=== PATIENT | male | born 1940 | race Caucasian/White ===

== ENCOUNTER 2019-12-20 | Outpatient (REF) | payer MEDICARE, OTHER, SELFPAY | END 2019-12-21 15:35 | disposition home or self-care (01) | LOC: HO.LNP | PROVIDERS: Visit Provider Urology | DX: C67.9 Malignant neoplasm of bladder, unspecified (principal) | CPT/HCPCS: 88112 ==

== ENCOUNTER → 2019-12-20 14:44 | Outpatient (BNVA) | payer MEDICARE, OTHER, SELFPAY | PROVIDERS: PCP Internal Medicine; Visit Provider Urology | DX: C67.9 Malignant neoplasm of bladder, unspecified (principal) | CPT/HCPCS: 52000; 99212 ==

== ENCOUNTER 2020-04-21 16:04 | Emergency (ER) | payer OTHER, MEDICARE, SELFPAY ==
--- NOTE | ~2020-04-21 | XR_ITS ---
EXAMINATION: XR FOOT, LEFT CLINICAL INFORMATION: Concern for osteomyelitis. COMPARISON: No priors. TECHNIQUE: AP, lateral, and oblique views of the left foot. FINDINGS: No fracture. Joints are approximated with preserved alignment. No erosions, reactive sclerosis, or periosteal reaction to suggest acute osteomyelitis. Vascular calcifications. No soft tissue gas. No radiopaque foreign body. Pes planus. XR/XR foot LT min 3V IMPRESSION: Left foot: No acute fracture or malalignment. No radiographic evidence of acute osteomyelitis.
--- NOTE | ~2020-04-21 | XR_ITS ---
EXAMINATION: XR FOOT, RIGHT CLINICAL INFORMATION: Concern for osteomyelitis. COMPARISON: No priors. TECHNIQUE: AP, lateral, and oblique views of the right foot. FINDINGS: No fracture. Bone density is preserved. No erosions, reactive sclerosis, or periosteal reaction to suggest acute osteomyelitis. No soft tissue gas. No radiopaque foreign body. Vascular calcifications. XR/XR foot RT min 3V IMPRESSION: Right foot: No acute fracture or malalignment. No radiographic features of acute osteomyelitis.
[2020-04-21 16:24] VITALS: BP 118/57; PULSE 69; RESP 16; TEMP 36.2; O2SAT 98; BMI 30.9
[2020-04-21 20:29] LABS: Glucose, Whole Blood 110 mg/dL (60-115)
--- NOTE | 2020-04-21 20:30 | PC.NURSE ---
PATIENT'S POC GLUCOSE 110. [facility] ([facility]) NOTIFIED THIS RN. PT RESTING IN BED 19H AT THIS TIME. AWAITING PRIMARY ED EVALUATION.
--- NOTE | 2020-04-21 21:07 | ED_ITS ---
HPI - Extremity Problem General Chief complaint: Extremity Problem Stated complaint: toe purple, back ulcer Time Seen by Provider: 04/21/20 20:54 Source: patient Mode of arrival: ambulatory Limitations: no limitations History of Present Illness HPI Narrative: Patient comes to emergency room complaining of bilateral leg swelling. Patient states he is being seen by his primary care physician and yeast tender. Patient states that his legs have been swollen for 2-3 months, he has several lesions in his toes in the dorsal aspect, has been seen by Dermatology for this. Patient states that he is taking 60 mg of torsemide every day, is complaint with his medications. Patient came to the emergency room because his family insisted that he needed to be checked out. Patient states he recently finished a course of antibiotics, does not remember the name. Patient denies fever or chills, no pain in his toes, his diabetic and has neuropathy MD Complaint: extremity swelling Related Data Previous Rx's Medication Instructions Recorded cephalexin [Keflex] 750 mg PO BID #14 cap 04/21/20 doxycycline hyclate 100 mg PO BID #14 tab 04/21/20 loperamide 2 mg PO Q6H PRN #10 cap 04/21/20 Allergies Allergy/AdvReac Type Severity Reaction Status Date / Time No Known Allergies Allergy Unverified 11/16/19 19:23 [No Known Allergies*] Review of Systems Review of Systems: Constitutional : Reports recent weight loss due to increased diuresis, No Fever, No Chills, No Night Sweats, No Fatigue, No Malaise ENT/Mouth : No Hearing loss, No Ear Pain, No Nasal Congestion, No Sinus Pain, No Hoarseness, No sore throat, No Rhinorrhea, No Swallowing Difficulty Eyes: No Eye Pain, No Swelling, No Redness, No Foreign Body, No Discharge, No Vision Changes Cardiovascular : No Chest Pain, No SOB, No Dyspnea on Exertion, No Orthopnea, No Palpitations Respiratory : No Cough, No Sputum, No Wheezing, No Smoke Exposure, No Dyspnea Gastrointestinal : No Nausea, No Vomiting, No Diarrhea, No Constipation, No abdominal Pain, No Hematochezia, No Melena Genitourinary : no irregular bleeding, No Dysuria, No Urinary Frequency, No Hematuria, No Urinary Incontinence, No Urgency, No Flank Pain, No Urinary Flow Changes, No Hesitancy Musculoskeletal : No joint pain, No Myalgias, No Joint Swelling Skin : Lower extremity swelling, blisters losing clear fluid bilaterally, scabs over toes Neuro : No Weakness, No Numbness, No Paresthesias, No Loss of Consciousness, No Dizziness, No Headache Psych : No Anxiety/Panic, No Depression, No SI/HI/AH/VH, No Social Issues, Heme/Lymph: No Bruising, No Bleeding Endocrine : No Polyuria, No Polydipsia, No Temperature Intolerance [facility] Past Medical History Medical History (Updated 04/21/20 @ 23:25 by Kary Barnes MD) Diabetes mellitus Social History Social History Advance Directives: No Physical Exam Vital Signs: Vital Signs: Last Vital Signs Temp 97.2 F 04/21/20 16:24 Pulse 69 04/21/20 16:24 Resp 16 04/21/20 16:24 BP 118/57 L 04/21/20 16:24 Pulse Ox 98 04/21/20 16:24 Body Mass Index 30.9 Appearance: Alert. Oriented X3. No acute distress. Eyes: Pupils equal, round and reactive to light. ENT: Pharynx normal. Neck: Normal inspection. Neck supple. No lymph nodes noted. No crepitus CVS: Normal heart rate and rhythm. Pulses normal. Normal S1 and S2 Respiratory: No respiratory distress. Breath sounds normal. No Wheezing. No rales Abdomen: Soft and nontender. No rigidity. No distention. good BS x4 Skin: Skin warm , lower extremities are oozing clear fluid, are several eschars in the dorsum of several toes, not painful to touch Extremities: +3 pitting edema bilaterally Neuro: Oriented X 3. No motor deficit. No sensory deficit. Moving all extermities. No slurred speech. Course Course Course Narrative: I discussed with the patient that he would benefit from a 2nd round of antibiotic treatment. However, the main course of treatment for the patient will be debridement. Patient will be referred to the wound clinic. Also, patient states that earlier today he had 1 episode of diarrhea, no v omiting, no abdominal pain. At this time, patient's white blood cell count is within normal limits, no fever, sepsis not suspected Patient's blood pressure is stable, I discussed with the patient to increase his torsemide to 80 mg, currently taking 60. MDM - Extremity (Nontraumatic) Lab Data Result diagrams: 04/21/20 21:34 04/21/20 22:12 Labs: Lab Results 04/21/20 04/21/20 04/21/20 Range/Units 20:26 21:34 21:34 WBC 7.0 (4.8-10.8) X10*3/uL RBC 3.99 L (4.60-5.80) X10*6/uL Hgb 10.7 L (14.0-18.0) g/dl Hct 34.4 L (42-52) % MCV 86.2 (80-98) fL MCH 26.8 L (27.0-33.0) pg MCHC 31.1 (31.0-36.0) g/dl RDW 19.1 H (11.0-16.0) % Plt Count 215 (160-400) X10*3/uL MPV 9.1 L (9.4-12.4) fL Immature Gran % (Auto) 0.3 (0.0-0.4) % Neut % (Auto) 74.8 H (45-73) % Lymph % (Auto) 8.8 L (20-40) % Mccreary % (Auto) 12.8 H (2-11) % Eos % (Auto) 2.6 (0-4) % Baso % (Auto) 0.7 (0-2) % Lymph # (Auto) 0.6 L (1.2-4.9) X10*3/uL Mccreary # (Auto) 0.9 (0.1-1.2) X10*3/uL Eos # (Auto) 0.2 (0.0-0.4) X10*3/uL Baso # (Auto) 0.1 (0.0-0.2) X10*3/uL Abs Immat Gran (auto) 0.02 (0.00-0.03) X10*3/uL Absolute Neuts (auto) 5.2 (2.0-8.3) X10*3/uL Absolute Nucleated RBC 0.000 (0.0-0.012) X10*3/uL Nucleated RBC % (auto) 0.0 (0.0-0.2) /100WBC Smear Tech's Comments VERIFIED Sodium (135-145) mmol/L Potassium (3.3-5.1) mmol/L Chloride (96-108) mmol/L Carbon Dioxide (22-29) mmol/L Anion Gap (12-20) BUN (9-16) mg/dL Creatinine (0.5-1.4) mg/dL Estim Creat Clear Calc Estimated GFR POC Glucose 110 (60-115) mg/dL Random Glucose (60-115) mg/dL Calcium (8.4-10.2) mg/dL B-Natriuretic Peptide 338 H (<100) pg/mL 04/21/20 Range/Units 22:12 WBC (4.8-10.8) X10*3/uL RBC (4.60-5.80) X10*6/uL Hgb (14.0-18.0) g/dl Hct (42-52) % MCV (80-98) fL MCH (27.0-33.0) pg MCHC (31.0-36.0) g/dl RDW (11.0-16.0) % Plt Count (160-400) X10*3/uL MPV (9.4-12.4) fL Immature Gran % (Auto) (0.0-0.4) % Neut % (Auto) (45-73) % Lymph % (Auto) (20-40) % Mccreary % (Auto) (2-11) % Eos % (Auto) (0-4) % Baso % (Auto) (0-2) % Lymph # (Auto) (1.2-4.9) X10*3/uL Mccreary # (Auto) (0.1-1.2) X10*3/uL Eos # (Auto) (0.0-0.4) X10*3/uL Baso # (Auto) (0.0-0.2) X10*3/uL Abs Immat Gran (auto) (0.00-0.03) X10*3/uL Absolute Neuts (auto) (2.0-8.3) X10*3/uL Absolute Nucleated RBC (0.0-0.012) X10*3/uL Nucleated RBC % (auto) (0.0-0.2) /100WBC Smear Tech's Comments Sodium 132 L (135-145) mmol/L Potassium 5.2 H (3.3-5.1) mmol/L Chloride 94 L (96-108) mmol/L Carbon Dioxide 27 (22-29) mmol/L Anion Gap 16 (12-20) BUN 41 H (9-16) mg/dL Creatinine 1.76 H (0.5-1.4) mg/dL Estim Creat Clear Calc 45.2 Estimated GFR 37 POC Glucose (60-115) mg/dL Random Glucose 94 (60-115) mg/dL Calcium 9.0 (8.4-10.2) mg/dL B-Natriuretic Peptide (<100) pg/mL Imaging Data Right foot x-ray: Radiologist's impression: FINDINGS: No fracture. Bone density is preserved. No erosions, reactive sclerosis, or periosteal reaction to suggest acute osteomyelitis. No soft tissue gas. No radiopaque foreign body. Vascular calcifications. XR/XR foot RT min 3V IMPRESSION: Right foot: No acute fracture or malalignment. No radiographic features of acute osteomyelitis. Left foot x-ray: Radiologist's impression: FINDINGS: No fracture. Joints are approximated with preserved alignment. No erosions, reactive sclerosis, or periosteal reaction to suggest acute osteomyelitis. Vascular calcifications. No soft tissue gas. No radiopaque foreign body. Pes planus. XR/XR foot LT min 3V IMPRESSION: Left foot: No acute fracture or malalignment. No radiographic evidence of acute osteomyelitis. Discharge Plan Discharge Clinical Impression: Lower extremity edema, Diabetic foot ulcer associated with type 2 diabetes mellitus, Diarrhea Patient Disposition: Home, Self-Care Instructions: Leg Edema (ED) Additional Instructions: Please increase your torsemide dose to 80 mg. Please make sure to call the wound clinic to schedule an appointment. If anything changes in your toes, any new changes, please return to the emergency room. Please use compression stockings as long as you can tolerated it. Please call the wound care center to schedule an appointment , [address] [place] [address] Please follow-up with your primary care physician tomorrow. If you have any worsening or new symptoms, please return to the emergency room or call [phone] Prescriptions: New loperamide 2 mg capsule 2 mg PO Q6H PRN (Reason: loose stool) Qty: 10 RF: 0 doxycycline hyclate 100 mg tablet 100 mg PO BID Qty: 14 RF: 0 cephalexin [Keflex] 750 mg capsule 750 mg PO BID Qty: 14 RF: 0
[2020-04-21 21:42] LABS: Basophils Absolute Auto 0.1 X10*3/uL (0.0-0.2); Basophils Percent Auto 0.7 % (0-2); Eosinophils Absolute Auto 0.2 X10*3/uL (0.0-0.4); Eosinophils Percent Auto 2.6 % (0-4); Hematocrit 34.4 % (42-52); Hemoglobin 10.7 g/dl (14.0-18.0); Imm Gran Abs Auto 0.02 X10*3/uL (0.00-0.03); Imm Gran Pct Auto 0.3 % (0.0-0.4); Lymphocytes Absolute Auto 0.6 X10*3/uL (1.2-4.9); Lymphocytes Percent Auto 8.8 % (20-40); MANUAL DIFF FLAG SCAN; Mean Corpuscular HGB Conc 31.1 g/dl (31.0-36.0); Mean Corpuscular Hemoglobin 26.8 pg (27.0-33.0); Mean Corpuscular Volume 86.2 fL (80-98); Mean Platelet Volume 9.1 fL (9.4-12.4); Monocytes Absolute Auto 0.9 X10*3/uL (0.1-1.2); Monocytes Percent Auto 12.8 % (2-11); Neutrophils Absolute Auto 5.2 X10*3/uL (2.0-8.3); Neutrophils Percent Auto 74.8 % (45-73); Platelet Count 215 X10*3/uL (160-400); Red Blood Count 3.99 X10*6/uL (4.60-5.80); Red Cell Distribution Width 19.1 % (11.0-16.0); SCAN SMEAR FLAG 1
[2020-04-21 21:43] LABS: SLIDE REVIEW VERIFIED
[2020-04-21 22:00] VITALS: BP 132/78; PULSE 82; RESP 18; O2SAT 96
[2020-04-21 22:06] LABS: B Type Natriuretic Peptide 338 pg/mL (<100)
--- NOTE | 2020-04-21 22:38 | PC.NURSE ---
PATIENT'S DAUGHTER (SYED) CONTACTED THIS RN, CALL BACK AT [phone] WITH UPDATES, OKAYED BY PATIENT. PATIENT'S CELL PHONE BATTERY . SYED AWARE OF PENDING LAB RESULTS. WILL CONTINUE TO MONITOR.
[2020-04-21 23:03] LABS: Anion Gap 16 (12-20); Blood Urea Nitrogen 41 mg/dL (9-16); Carbon Dioxide 27 mmol/L (22-29); Chloride 94 mmol/L (96-108); Creatinine Clr Calc Pharmacy 45.2; Estimated Glomerular Filt Rate 37; Glucose Random 94 mg/dL (60-115); Potassium 5.2 mmol/L (3.3-5.1); Sodium 132 mmol/L (135-145)
[2020-04-21] MEDS: Loperamide HCl 2 MG CAPSULE 4 MG PO (23:38)
[2020-04-21] MEDS: cephALEXin 500 MG CAPSULE PO (23:38)
== END 2020-04-21 23:45 | disposition home or self-care (01) ==
PROVIDERS: Emergency Provider Emergency Medicine; PCP Internal Medicine
DX: R60.0 Localized edema (principal); E11.621 Type 2 diabetes mellitus with foot ulcer; M79.672 Pain in left foot; M79.671 Pain in right foot; R19.7 Diarrhea, unspecified; Z79.899 Other long term (current) drug therapy
CPT/HCPCS: 36415; 73630; 80048; 82947; 83880; 85025; 99283; 99284

== ENCOUNTER 2020-04-24 08:48 | Outpatient (RCR) | payer MEDICARE, OTHER, SELFPAY | END 2020-06-25 13:18 | disposition home or self-care (01) | LOC: HO.WCC 08:48 | PROVIDERS: PCP Internal Medicine; Visit Provider Surgery | DX: E11.621 Type 2 diabetes mellitus with foot ulcer (principal); E11.622 Type 2 diabetes mellitus with other skin ulcer; L97.512 Non-pressure chronic ulcer of other part of right foot with fat layer exposed; L97.522 Non-pressure chronic ulcer of other part of left foot with fat layer exposed; L97.829 Non-pressure chronic ulcer of other part of left lower leg with unspecified severity; L97.819 Non-pressure chronic ulcer of other part of right lower leg with unspecified severity; L98.412 Non-pressure chronic ulcer of buttock with fat layer exposed; I70.245 Atherosclerosis of native arteries of left leg with ulceration of other part of foot; I70.235 Atherosclerosis of native arteries of right leg with ulceration of other part of foot; I87.313 Chronic venous hypertension (idiopathic) with ulcer of bilateral lower extremity; E11.52 Type 2 diabetes mellitus with diabetic peripheral angiopathy with gangrene; I96 Gangrene, not elsewhere classified; Z79.01 Long term (current) use of anticoagulants; Z79.2 Long term (current) use of antibiotics | CPT/HCPCS: 99215 ==

== ENCOUNTER 2020-05-02 14:29 | Outpatient (REF) | payer MEDICARE, OTHER, SELFPAY ==
--- NOTE | ~2020-05-02 | US_ITS ---
EXAMINATION: BILATERAL LOWER EXTREMITY DUPLEX CLINICAL INFORMATION: History of advanced PAD, lower extremity ulceration and prior arterial stenting. TECHNIQUE: Real-time ultrasound and Doppler techniques (integrating B-mode 2-D vascular images, Doppler spectral analysis and color flow Doppler imaging) were utilized to interrogate the lower extremities. Technically difficult examination. COMPARISON: No comparisons available. FINDINGS: RIGHT LEG: Common femoral artery: 147 cm/s, biphasic Profunda femoris artery: 157 cm/s, biphasic Superficial femoral artery (proximal): 186 cm/s, monophasic Proximal SFA stent: [place] artery (proximal): 1 86 cm/s, monophasic Proximal stent: 123 cm/s, biphasic Mid stent: 106 cm/s, biphasic Distal stent: 118 cm/s, biphasic [place] artery (distal): 75 cm/s, biphasic Mid SFA stent: [place] artery (proximal): 66 cm/s, monophasic Proximal stent: 59 cm/s, monophasic Mid stent: 54 cm/s, monophasic Distal stent: 108 cm/s, monophasic [place] artery (distal): 72 cm/s, monophasic Popliteal artery: 72 cm/s, monophasic Posterior tibial artery: 37 cm/s, monophasic Right peroneal artery: Not visualized LEFT LEG: Common femoral artery: 98 cm/s, monophasic Profunda femoris artery: 160 cm/s, monophasic Superficial femoral artery (proximal): Occluded Superficial femoral artery (mid): Occluded Superficial femoral artery (distal): Occluded Popliteal artery: 42 cm/s, monophasic Posterior tibial artery: Occluded US/US arterial duplex LE BI IMPRESSION: 1. Evidence of mild multifocal stenosis throughout the right lower extremity arterial vasculature. 2. Proximal and mid superficial femoral artery stents are patent, monophasic waveforms are demonstrated throughout. Focally elevated velocity within the distal, mid-SFA stent suggests a hemodynamically significant stenosis. 3. 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 4. Evaluation of the left calf is limited due to overlying dressings. No flow is identified within the posterior tibial artery.
== END 2020-05-02 14:30 | disposition home or self-care (01) ==
LOC: HO.US 14:29
PROVIDERS: PCP Internal Medicine; Visit Provider Surgery
DX: I70.235 Atherosclerosis of native arteries of right leg with ulceration of other part of foot (principal); I70.245 Atherosclerosis of native arteries of left leg with ulceration of other part of foot; L97.512 Non-pressure chronic ulcer of other part of right foot with fat layer exposed; L97.522 Non-pressure chronic ulcer of other part of left foot with fat layer exposed; I87.313 Chronic venous hypertension (idiopathic) with ulcer of bilateral lower extremity; E11.621 Type 2 diabetes mellitus with foot ulcer
CPT/HCPCS: 93925

== ENCOUNTER 2020-05-08 12:55 | Outpatient (REF) | payer MEDICARE, OTHER, SELFPAY | END 2020-05-08 12:56 | disposition home or self-care (01) | LOC: CF 12:55 | PROVIDERS: Visit Provider Urology | DX: C67.9 Malignant neoplasm of bladder, unspecified (principal); N40.1 Benign prostatic hyperplasia with lower urinary tract symptoms; R97.20 Elevated prostate specific antigen [PSA]; I50.9 Heart failure, unspecified | CPT/HCPCS: 81002; 88112; 99212 ==

== ENCOUNTER 2020-06-24 06:45 | Outpatient (REF) | payer SELFPAY | END 2020-06-24 06:46 | disposition home or self-care (01) | LOC: HO.MMNH1L 06:45 | PROVIDERS: Visit Provider Family Medicine | DX: Z13.89 Encounter for screening for other disorder (principal) ==

== ENCOUNTER → 2023-10-28 12:00 | Outpatient (RCR) | payer MEDICARE, OTHER, SELFPAY ==
--- NOTE | 2020-06-05 14:49 | MHC.HEMONC ---
called pt re: appt this afternoon. He states they are working up my heart for now and bladder treatment on hold . I called Dr Granados's office to f/u with pt. They called him and found him to be confused. He said he was in hospital somewhere but this was not confirmed. They will communicate with us re: remaining treatments with Gemcitabine.
--- NOTE | 2020-06-18 16:06 | HO.HEMONCPA ---
PA is not required due to patient having Medicare as primary insurance
== END | disposition home or self-care (01) ==
LOC: HO.ONC 05-29 10:30
PROVIDERS: Visit Provider Urology
DX: Z13.89 Encounter for screening for other disorder (principal)